=== PATIENT | male | born 1990 | race Caucasian/White ===

== ENCOUNTER 2018-06-16 18:04 | Emergency (ER) | payer BC, SELFPAY ==
[2018-06-16 18:18] VITALS: BP 119/46; PULSE 55; RESP 18; TEMP 36.6; O2SAT 98; BMI 30.5
--- NOTE | 2018-06-16 18:37 | RAD_ITS ---
STUDY: X-RAY - LEFT WRIST REASON FOR EXAM: Male, 27 years old. Trauma TECHNIQUE: 3 view(s) of the wrist were obtained. COMPARISON: None. FINDINGS: There is an acute impacted comminuted fracture with overlapping and dorsal angulation of fracture fragments.. There also appears to be an old unfused fracture of the ulnar styloid. Normal radiocarpal articulation. Normal distal radioulnar articulation. Normal carpal bones. Normal carpal articulations. Normal carpometacarpal articulation of the thumb. Normal second through fifth carpometacarpal articulations. Normal visualized metacarpal bones. The soft tissue structures are unremarkable. RAD/Wrist min 3 Views IMPRESSION: Acute fracture of the distal radius with dorsal angulation of fracture fragments Electronically Signed: Valdemar Baker MD at 19:23 EDT , Service support ,
[2018-06-16] MEDS: Morphine 4 MG/ML Syringe IV (18:46)
[2018-06-16] MEDS: Ondansetron 4 MG/2 ML Vial IV (18:46)
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
--- NOTE | 2018-06-16 20:50 | ED.DEP ---
ED Disposition - Plan for ED Patient: Chief Complaint: Upper Extremity Injury Instructions: ED Fx Colles Wrist No Redu Requ Prescriptions: Oxycodone HCl/Acetaminophen [Percocet 5/325] 1 tab PO Q6H PRN PRN 3 Days #12 tab PRN Reason: Pain Referrals: Lolly Baldwin DO [STAFF PHYSICIAN] - Additional Instructions: call tomorrow for appointment
[2018-06-16 21:16] VITALS: BP 125/75; PULSE 75; RESP 16; O2SAT 99
== END 2018-06-16 21:16 | disposition home or self-care (01) ==
LOC: ED 18:59
PROVIDERS: Emergency Provider Emergency Medicine
DX: S52.502A Unspecified fracture of the lower end of left radius, initial encounter for closed fracture (principal); V23.4XXA Motorcycle driver injured in collision with car, pick-up truck or van in traffic accident, initial encounter; Y93.89 Activity, other specified; Y92.9 Unspecified place or not applicable
CPT/HCPCS: 29125; 73110; 96374; 96375; 99283; A4216; J2405

== ENCOUNTER → 2018-06-18 12:31 | Outpatient (CLI) | payer BC, SELFPAY ==
--- NOTE | 2018-06-18 12:33 | RAD_ITS ---
STUDY: X-RAY - LEFT WRIST REASON FOR EXAM: Male, 27 years old. Follow-up of distal radial fracture. TECHNIQUE: 3 view(s) of the wrist were obtained. COMPARISON: June 16, 2018 FINDINGS: There is stable generalized osteopenia. The comminuted impacted fracture of the distal radius with dorsal displacement of the distal fragment is relatively stable. The ulnar styloid fracture is stable. A separate ossification center or remote nonunion of an ulnar styloid fracture is also stable. Normal carpometacarpal articulation of the thumb. Normal second through fifth carpometacarpal articulations. Normal visualized metacarpal bones. The soft tissue structures are unremarkable. RAD/Wrist min 3 Views IMPRESSION: Stable distal radial and ulnar fractures. Electronically Signed: Mario Feldman MD at 18:20 EDT , Service support ,
== END ==
PROVIDERS: Visit Provider Orthopaedic Surgery
DX: M25.532 Pain in left wrist (principal)
CPT/HCPCS: 73110

== ENCOUNTER 2018-06-26 08:29 | Day surgery (SDC) | payer BC, SELFPAY ==
[2018-06-26] VITALS (7 sets, daily range): BP systolic 132–154; BP diastolic 66–83; PULSE 77–116; RESP 16–18; TEMP 36.6–37.2; O2SAT 95–98; BMI 31.3
--- NOTE | 2018-06-26 10:15 | RAD_ITS ---
STUDY: X-RAY - LEFT WRIST REASON FOR EXAM: ORIF. TECHNIQUE: 3 fluoroscopic view(s) of the wrist were obtained. COMPARISON: Radiographs 06/18/2018. FINDINGS: There is an orthopedic plate and screws transfixing a distal radial fracture in anatomical alignment and position. There is an avulsion fracture of the ulnar styloid process. 67.9 seconds of fluoroscopy time was used. Electronically Signed: Chris Nathan MD at 14:52 EDT Tel , Service support , RAD/Wrist 2 Views
[2018-06-26] MEDS: Cefazolin 2 GM in 0.9% Normal Saline 100 ML IV (12:07)
--- NOTE | 2018-06-26 14:10 | PCM.DC.ORTHO ---
Discharge Diet: No Restrictions - leave splint/dressing intact, follow up in 2 weeks in clinic for repeat xrays nad suture removal, call with concerns Discharge Activity: May Not Drive May shower in (days): 1 Ice area for (Minutes): 20 - Every hour while awake. Weight Bearing Status: Weight bearing as tolerated Keep extremity elevated above heart level: Operative Extremity Call your doctor if your incision/area has: Continuous Slow Oozing, Sudden Increased Bleeding, Increased Pain/ Swelling, Increased Redness, Foul Smelling Discharge Call your doctor if you observe: Fever of 101 or Higher, Coldness, Increased Pain, Numbness or Tingling, Change in Color, Calf discomfort Allergies/Adverse Reactions: Allergies No Known Allergies Allergy (Verified 06/23/18 09:37) Medications to take at Discharge Oxycodone HCl/Acetaminophen [Percocet 5/325] 1 tab PO Q6H PRN PRN 3 Days #12 tab 06/16/18 Multivitamin [Multiple Vitamins] 1 each PO DAILY 06/23/18 Hydrocodone Bitart/Apap 5-325 [[place] 5MG-325MG] 1 - 2 tablet PO Q6H PRN PRN 5 Days #40 tablet 06/26/18 The following prescriptions were given: Hydrocodone Bitart/Apap 5-325 [[place] 5MG-325MG] 1 - 2 tablet PO Q6H PRN PRN 5 Days #40 tablet PRN Reason: Pain Primary Care Physician: Care Physician,No Primary [Primary Care Provider] - Test Results: Test results from this visit will be discussed in further detail at your follow-up appointment, if applicable. Please Follow Up With: Lolly Baldwin, - [phone]
--- NOTE | 2018-06-26 14:11 | PCM.OPRPT ---
Report of Operation Date of Procedure: 06/26/18 Pre-Operative Diagnosis: left intraarticular distal radius fracture Post-Operative Diagnosis: same Surgery/Procedure Performed:: left orif distal radius counter dish carrier: Abhilash Molina counter dish carrier: Marisela Mayorga Type of Anesthesia:: General Anesthesiologist: Rian Moore Estimated Blood Loss (mL): 10cc Fluids Replaced: 1800 ml lr Description of Procedure: Preoperative note Patient is a 27-year-old male who fell onto his left outstretched hand. He had a intra-articular split fracture of his distal radius. Risks benefits and alternatives surgery discussed with patient. Risks including but not limited to blood loss, blood clot, infection, neurovascular injury, failure procedure, loss of life and loss of limb. Patient is aware like proceed with open reduction internal fixation of his left distal radius. Next Operative note Patient seen and examined preoperative holding area. Left hand was marked. Patient is brought to the operating room and placed supine on the operating table. Signing, anesthesia, antibiotics were administered. The left hand was prepped and draped in usual sterile fashion with a tourniquet around his upper arm. Timeout was performed. We then marked out our incision for our distal radius ORIF with the help of C arm for length. The left arm was then elevated exsanguinated and tourniquet was raised her pressure of 250 torr. We then began with a 15 blade cut through the skin tenotomies down the level of the FCR the FCR was then brought brought ulnarly the fascia was excised we then dissected down to level of the pronator quadratus pronator quadratus was then excised sharply from its origin on the radial side of the radius and then swept upward with a lackey elevator then able to visualize the distal radius fracture. He had some comminution intra-articular about 2 pieces there also was some callus formations we use a bone and bone pick and a freer elevator to release this we pulled length using finger traps for a very short period of time this in order to debride the fracture site and get a better reduced because he was quite off dorsally as well. We then able to reduce the fracture and had a little bit of more not quite at the volar tilt that we likes we did place start with the filling the screw holes of the our 2.4 Synthes volar distal radius 2.4 VA LCP to contemplate we used a 7 head holes and the 3 shaft holes. We placed and we placed the screws 3 cortical screws distally into the distal radius after this we then placed 2 locking screws on the most ulnar piece ulnar side of the plate we then able to bring the plate down to bone and in doing so did recruit re-create our volar tilt. We then placed our 2.7 mm cortex screws drilling and measuring appropriately there is 116 and 218 mm screws in the shaft. We then noted that 1 of the cortical screws seem to have migrated a little bit intra-articular so this was removed and 2 of them are actually replaced with cortex sorry locking screws. In the end we used 160 mm, 122 mm and 2, 24 mm 2.4 locking screws in the distal plate as well as 126 mm this is the one that went to the radial styloid. We took multiple images to ensure that we are and of the screws were in the joint which they were not. We then irrigated the incision with copious amounts of sterile saline. The pronator was placed on top of the plate. The skin was closed with a 2-0 Vicryl 3-0 Vicryl sorry and a running 4-0 Monocryl sterile dressings and a splint was applied. Tourniquet was deflated for total working time of 80 minutes. Patient tolerated procedure well there are no comp occasions transferred to recovery room in stable condition neuro intact. Postoperative note Nonweightbearing left arm [facility] has his pain prescription next Call with increased pain numbness tingling or further issues arise Discussed with mom Follow-up in 2 weeks Leave dressing on This note was generated with [employer] dictation software. It may contain incorrect words, spelling, and punctuation that were not noted in checking the note before signing.
[2018-06-26] MEDS: Mupirocin Ointment 22gm Tube 1 APPLIC (14:13)
--- NOTE | 2018-06-26 14:17 | OP.PCM_ITS ---
Report of Operation Date of Procedure: 06/26/18 Pre-Operative Diagnosis: left intraarticular distal radius fracture Post-Operative Diagnosis: same Surgery/Procedure Performed:: left orif distal radius mysql dba: Abhilash Molina mysql dba: Marisela Mayorga Type of Anesthesia:: General Anesthesiologist: Rian Moore Estimated Blood Loss (mL): 10cc Fluids Replaced: 1800 ml lr Description of Procedure: Preoperative note Patient is a 27-year-old male who fell onto his left outstretched hand. He had a intra-articular split fracture of his distal radius. Risks benefits and alternatives surgery discussed with patient. Risks including but not limited to blood loss, blood clot, infection, neurovascular injury, failure procedure, loss of life and loss of limb. Patient is aware like proceed with open reduction internal fixation of his left distal radius. Next Operative note Patient seen and examined preoperative holding area. Left hand was marked. Patient is brought to the operating room and placed supine on the operating table. Signing, anesthesia, antibiotics were administered. The left hand was prepped and draped in usual sterile fashion with a tourniquet around his upper arm. Timeout was performed. We then marked out our incision for our distal radius ORIF with the help of C arm for length. The left arm was then elevated exsanguinated and tourniquet was raised her pressure of 250 torr. We then began with a 15 blade cut through the skin tenotomies down the level of the FCR the FCR was then brought brought ulnarly the fascia was excised we then dissected down to level of the pronator quadratus pronator quadratus was then excised sharply from its origin on the radial side of the radius and then swept upward with a lackey elevator then able to visualize the distal radius fracture. He had some comminution intra-articular about 2 pieces there also was some callus formations we use a bone and bone pick and a freer elevator to release this we pulled length using finger traps for a very short period of time this in order to debride the fracture site and get a better reduced because he was quite off dorsally as well. We then able to reduce the fracture and had a little bit of more not quite at the volar tilt that we likes we did place start with the filli ng the screw holes of the our 2.4 Synthes volar distal radius 2.4 VA LCP to contemplate we used a 7 head holes and the 3 shaft holes. We placed and we placed the screws 3 cortical screws distally into the distal radius after this we then placed 2 locking screws on the most ulnar piece ulnar side of the plate we then able to bring the plate down to bone and in doing so did recruit re- create our volar tilt. We then placed our 2.7 mm cortex screws drilling and measuring appropriately there is 116 and 218 mm screws in the shaft. We then noted that 1 of the cortical screws seem to have migrated a little bit intra- articular so this was removed and 2 of them are actually replaced with cortex sorry locking screws. In the end we used 160 mm, 122 mm and 2, 24 mm 2.4 locking screws in the distal plate as well as 126 mm this is the one that went to the radial styloid. We took multiple images to ensure that we are and of the screws were in the joint which they were not. We then irrigated the incision with copious amounts of sterile saline. The pronator was placed on top of the plate. The skin was closed with a 2-0 Vicryl 3-0 Vicryl sorry and a running 4-0 Monocryl sterile dressings and a splint was applied. Tourniquet was deflated for total working time of 80 minutes. Patient tolerated procedure well there are no comp occasions transferred to recovery room in stable condition neuro intact. Postoperative note Nonweightbearing left arm [facility] has his pain prescription next Call with increased pain numbness tingling or further issues arise Discussed with mom Follow-up in 2 weeks Leave dressing on This note was generated with [employer] dictation software. It may contain incorrect words, spelling, and punctuation that were not noted in checking the note before signing.
[2018-06-26] MEDS: Acetaminophen 325 MG Tablet PO (15:29)
[2018-06-26] MEDS: oxyCODONE 5 MG Tablet PO (15:29)
== END 2018-06-26 16:24 | disposition home or self-care (01) ==
LOC: SDC 08:29 → AC 08:30
PROVIDERS: Visit Provider Orthopaedic Surgery
PROC: (CPT 25608; principal; 2018-06-26 10:00)
DX: S52.572A Other intraarticular fracture of lower end of left radius, initial encounter for closed fracture (principal); V28.4XXA Motorcycle driver injured in noncollision transport accident in traffic accident, initial encounter; Y93.I9 Activity, other involving external motion
CPT/HCPCS: 01830; 25608; 73100; 76000; C1713; J7120; J2405

== ENCOUNTER → 2018-07-10 08:01 | Outpatient (CLI) | payer BC, SELFPAY ==
--- NOTE | 2018-07-10 08:03 | RAD_ITS ---
STUDY: X-RAY - LEFT WRIST REASON FOR EXAM: Postop. TECHNIQUE: 3 view(s) of the wrist were obtained. COMPARISON: Intraoperative images 06/26/2018. FINDINGS: There is an orthopedic plate and screws transfixing a distal radial fracture in anatomical alignment and position. There is avulsion of the ulnar styloid process. Normal radiocarpal articulation. Normal distal radioulnar articulation. Normal carpal bones. Normal carpal articulations. Normal carpometacarpal articulation of the thumb. Normal second through fifth carpometacarpal articulations. Normal visualized metacarpal bones. There is an overlying cast. RAD/Wrist min 3 Views IMPRESSION: No interval change of operative reduction internal fixation of distal radial fracture. Electronically Signed: Chris Nathan MD at 9:05 EDT Tel , Service support ,
== END ==
PROVIDERS: Referring Provider Physician Assistant; Visit Provider Physician Assistant
DX: S52.92XA Unspecified fracture of left forearm, initial encounter for closed fracture (principal)
CPT/HCPCS: 73110

== ENCOUNTER → 2018-08-06 08:13 | Outpatient (CLI) | payer BC, SELFPAY ==
--- NOTE | 2018-08-06 08:14 | RAD_ITS ---
STUDY: X-RAY - LEFT WRIST REASON FOR EXAM: Male, 28 years old. 2 months from postoperative treatment TECHNIQUE: 3 view(s) of the wrist were obtained. COMPARISON: July 10, 2018 FINDINGS: Stable appearance of plate and screw fixation of the distal radius. Fracture lines demonstrate increased callus formation and healing. Alignment is maintained. Unchanged distal ulnar fracture. Normal surrounding soft tissues RAD/Wrist min 3 Views IMPRESSION: Stable plate-screw fixation of the distal radius with increased healing Electronically Signed: Gold Harp DO at 7:14 EST Tel , Service support ,
== END ==
PROVIDERS: Referring Provider Physician Assistant; Visit Provider Physician Assistant
DX: S52.502A Unspecified fracture of the lower end of left radius, initial encounter for closed fracture (principal); X58.XXXA Exposure to other specified factors, initial encounter
CPT/HCPCS: 73110

== ENCOUNTER → 2018-09-17 08:08 | Outpatient (CLI) | payer BC, SELFPAY ==
--- NOTE | 2018-09-17 08:10 | RAD_ITS ---
STUDY: X-RAY - LEFT WRIST REASON FOR EXAM: Male, 28 years old. Postop. TECHNIQUE: 3 view(s) of the wrist were obtained. COMPARISON: August 06, 2018. FINDINGS: Improvement with continued healing of distal radius fracture status post ORIF with fixation plate and screws. There is increased callus. Stable nonunited ulnar styloid fracture. Normal radiocarpal articulation. Normal distal radioulnar articulation. Normal carpal bones. Normal carpal articulations. Normal carpometacarpal articulation of the thumb. Normal second through fifth carpometacarpal articulations. Normal visualized metacarpal bones. The soft tissue structures are unremarkable. RAD/Wrist min 3 Views IMPRESSION: Healing distal radius and nonunited ulna styloid fractures. Electronically Signed: Surendra Redman MD at 17:52 EST , Service support ,
== END ==
PROVIDERS: Referring Provider Physician Assistant; Visit Provider Physician Assistant
DX: S52.502A Unspecified fracture of the lower end of left radius, initial encounter for closed fracture (principal); S52.615A Nondisplaced fracture of left ulna styloid process, initial encounter for closed fracture; X58.XXXA Exposure to other specified factors, initial encounter
CPT/HCPCS: 73110